=== PATIENT | female | born 1995 | race Caucasian/White ===

== ENCOUNTER 2017-01-01 09:26 | Emergency (ER) | payer BC ==
[2017-01-01] MEDS ORDERED: Famotidine 20 MG Tab PO ONE (09:56)
--- NOTE | 2017-01-01 10:02 | EDM.PDOC ---
ED HPI GENERAL MEDICAL PROBLEM - General Chief Complaint: Allergic Reaction Stated Complaint: REACTION TO MEDS Time Seen by Provider: 01/01/17 09:57 Source of Information: Reports: Patient - History of Present Illness INITIAL COMMENTS - FREE TEXT/NARRATIVE: HISTORY AND PHYSICAL: History of present illness: [Patient presents with history of bipolar disorder recently diagnosed by Debbi Boss, she was started on Lamictal just over a week ago she developed rash yesterday covering flanks arms by doc and anterior thigh as well as inner thigh , diffuse maculopapular rash which coalesces, there are no below no mucosal lesions or involvement, she denies current fever nausea vomiting chills sweats no chest pain shortness of breath headache dizziness or palpitation no sore throat no bowel or urine symptoms specifically no diarrhea Skin maculopapular rash as above no bulla, no vesicles, no target lesions, no mucosal involvement Review of systems: As per history of present illness and below otherwise all systems reviewed and negative. Past medical history: As per history of present illness and as reviewed below otherwise noncontributory. Surgical history: As per history of present illness and as reviewed below otherwise noncontributory. Social history: No reported history of drug or alcohol abuse. Family history: As per history of present illness and as reviewed below otherwise noncontributory. Physical exam: HEENT: Atraumatic, normocephalic, pupils reactive, negative for conjunctival pallor or scleral icterus, mucous membranes moist, throat clear, neck supple, nontender, trachea midline. No mucosal lesions, no epistaxis or conjunctivitis Lungs: Clear to auscultation, breath sounds equal bilaterally, chest nontender. Heart: S1S2, regular, negative for clicks, rubs, or JVD. Abdomen: Soft, nondistended, nontender. Negative for masses or hepatosplenomegaly. Negative for costovertebral tenderness. Pelvis: Stable nontender. Genitourinary: Deferred by patient. Rectal: Deferred. Extremities: Atraumatic, negative for cords or calf pain. Neurovascular unremarkable. Neuro: Awake, alert, oriented. Cranial nerves II through XII unremarkable. Cerebellum unremarkable. Motor and sensory unremarkable throughout. Exam nonfocal. Diagnostics: []Orthostatics Clinical exam Therapeutics: []Patient stopped Lamictal yesterday Benadryl 50 mg by mouth every 6 when necessary Zantac 150 milligrams by mouth twice a day when necessary Medrol Dosepak Impression: []Allergic reaction Definitive disposition and diagnosis as appropriate pending reevaluation and review of above. Generalized rash Pain Score (Numeric/FACES): 4 - Related Data Allergies Allergy/AdvReac Type Severity Reaction Status Date / Time doxycycline Allergy Hives Verified 01/01/17 09:34 Home Meds: Home Meds Levothyroxine Sodium [Levo-T] 112 mcg PO DAILY 01/01/17 [History] Progesterone,Micronized [Progesterone Micronized] 01/01/17 [History] metFORMIN [Glucophage XR] 1,000 mg PO DAILY 01/01/17 [History] Past Medical History Endocrine/Metabolic History: Reports: Hypothyroidism - Infectious Disease History Infectious Disease History: Reports: Other (See Below) Other Infectious Disease History: CP vaccine Social & Family History - Family History Family Medical History: Noncontributory - Tobacco Use Smoking Status *Q: Never Smoker Second Hand Smoke Exposure: No - Caffeine Use Caffeine Use: Reports: Coffee, Energy Drinks, Soda, Tea - Recreational Drug Use Recreational Drug Use: No ED ROS ALLERGIC REACTION - Review of Systems Review Of Systems: ROS reveals no pertinent complaints other than HPI. ED EXAM GENERAL NO PERIP PULSE - Physical Exam Exam: See Below Course - Vital Signs Last Recorded V/S: Last Vital Signs Temp 99.2 F 01/01/17 09:36 Pulse 96 01/01/17 09:36 Resp 16 01/01/17 09:36 BP 150/99 H 01/01/17 09:36 Pulse Ox 97 01/01/17 09:36 - Orders/Labs/Meds Orders: Active Orders 24 hr Category Date Time Status Orthostatic Vital Signs [RC] ASDIRECTED Care 01/01/17 10:02 Ordered Meds: Medications Discontinued Medications Generic Name Dose Route Start Last Admin Trade Name Freq PRN Reason Stop Dose Admin Famotidine 20 mg 01/01/17 09:56 Pepcid PO 01/01/17 09:57 ONETIME ONE Departure - Departure Time of Disposition: 10:05 Disposition: Home, Self-Care 01 Condition: Good Clinical Impression: Allergic reaction - Discharge Information Referrals: PCP,None [Primary Care Provider] - Additional Instructions: Medication as prescribed EpiPen adult is provided Return if symptoms persist or worsen despite treatment specifically if you develop any blister type lesions on her skin or sores in your mouth or vaginal area Discontinue Lamictal as you have done already Follow-up with [facility] as scheduled at the end of the month The following information is given to patients seen in the emergency department who are being discharged to home. This information is to outline your options for follow-up care. We provide all patients seen in our emergency department with a follow-up referral. The need for follow-up, as well as the timing and circumstances, are variable depending upon the specifics of your emergency department visit. If you don't have a primary care physician on staff, we will provide you with a referral. We always advise you to contact your personal physician following an emergency department visit to inform them of the circumstance of the visit and for follow-up with them and/or the need for any referrals to a consulting specialist. The emergency department will also refer you to a specialist when appropriate. This referral assures that you have the opportunity for follow-up care with a specialist. All of these measure are taken in an effort to provide you with optimal care, which includes your follow-up. Under all circumstances we always encourage you to contact your private physician who remains a resource for coordinating your care. When calling for follow-up care, please make the office aware that this follow-up is from your recent emergency room visit. If for any reason you are refused follow-up, please contact the [facility] emergency department at and asked to speak to the emergency department charge nurse. - My Orders Last 24 Hours: My Active Orders 01/01/17 10:02 Orthostatic Vital Signs [RC] ASDIRECTED - Assessment/Plan Last 24 Hours: My Active Orders 01/01/17 10:02 Orthostatic Vital Signs [RC] ASDIRECTED
== END 2017-01-01 10:35 | disposition home or self-care (01) ==
LOC: MW.ED 09:26
DX: T78.40XA Allergy, unspecified, initial encounter (principal); Z88.1 Allergy status to other antibiotic agents; Z79.84 Long term (current) use of oral hypoglycemic drugs
CPT/HCPCS: 99283

== ENCOUNTER 2018-05-15 03:31 | Inpatient (IN) | payer BC ==
[2018-05-15] MEDS ORDERED: Misoprostol 200 MCG Tab PO PRN (04:02)
[2018-05-15] MEDS ORDERED: Lidocaine 1% 50 ML MDV INJECT PRN (04:02)
[2018-05-15] MEDS ORDERED: Sodium Chloride 0.9% 10 ML SDV IV PRN (04:02)
[2018-05-15] MEDS ORDERED: Methylergonovine 0.2 MG/1 ML Amp IM PRN (04:02)
[2018-05-15] MEDS ORDERED: Water For Irrigation,Sterile 1,000 ML Container IRR PRN (04:02)
[2018-05-15] MEDS ORDERED: Ondansetron 4 MG/2 ML SDV IV PRN (04:02)
[2018-05-15] MEDS ORDERED: Sodium Chloride 0.9% 10 ML Syringe FLUSH PRN (04:02)
[2018-05-15] MEDS ORDERED: Misoprostol 25 MCG (1/4 of 100 MCG) Tab VAG PRN ×2 (04:02→08:15)
[2018-05-15] MEDS ORDERED: Terbutaline 1 MG/ML SDV SUBCUT PRN (04:02)
[2018-05-15] MEDS ORDERED: Carboprost Tromethamine 250 MCG/1 ML Amp IM PRN (04:02)
[2018-05-15] MEDS ORDERED: Tranexamic Acid 1,000 MG in Sodium Chloride 0.9% 100 ML IV PRN (04:02)
[2018-05-15] MEDS ORDERED: Nalbuphine 10 MG/1 ML Vial IVPUSH PRN (04:02)
[2018-05-15] MEDS ORDERED: Misoprostol 25 MCG (1/4 of 100 MCG) Tab PO ONE (04:10)
[2018-05-15] MEDS ORDERED: Oxytocin/0.9 % Sodium Chloride 30 UNIT/500 ML BAG IV SCH ×2 (04:15)
--- NOTE | 2018-05-15 07:29 | PCM.LDHP ---
L&D History of Present Illness - General Date of Service: 05/15/18 Admit Problem/Dx: Patient Status Order with Admit Dx/Problem 05/15/18 04:02 Patient Status [ADT] Routine Admission Diagnosis/Problem Admission Diagnosis/Problem -related examination 05/15/18 07:25 22yo EDC 05/09/2018 40 6/7wks IOL for post dates, A+, RI, GBS pos. Source of Information: Patient History Limitations: Reports: No Limitations - History of Present Illness Improves with: Reports: None Worsens with: Reports: None Associated Symptoms: Reports: N - Related Data Allergies/Adverse Reactions: Allergies Allergy/AdvReac Type Severity Reaction Status Date / Time doxycycline Allergy Hives Verified 04/11/18 21:28 lamotrigine [From Lamictal] Allergy Rash Verified 04/11/18 21:28 oxcarbazepine Allergy Rash Verified 04/11/18 21:28 Home Medications: Home Meds Levothyroxine Sodium [Levo-T] 112 mcg PO DAILY 01/01/17 [History] Ondansetron [Zofran ODT] 4 mg PO Q6H PRN 01/20/18 [History] PNV95/Ferrous Fumarate/FA [Prenavite Tablet] 1 each PO DAILY 01/20/18 [History] Past Medical History Genitourinary History: Reports: UTI, Recurrent 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: Reports: Polycystic Ovaries, Psychiatric History: Reports: Anxiety, Bipolar, Depression Endocrine/Metabolic History: Reports: Hypothyroidism - Infectious Disease History Infectious Disease History: Reports: Other (See Below) Other Infectious Disease History: CP vaccine - Past Surgical History HEENT Surgical History: Reports: Tonsillectomy Female Surgical History: Reports: None Social & Family History - Family History Family Medical History: Noncontributory - Tobacco Use Smoking Status *Q: Never Smoker Second Hand Smoke Exposure: No - Caffeine Use Caffeine Use: Reports: Coffee, Energy Drinks, Soda, Tea - Recreational Drug Use Recreational Drug Use: No H&P Review of Systems - Review of Systems: Review Of Systems: See Below General: Reports: No Symptoms HEENT: Reports: No Symptoms Pulmonary: Reports: No Symptoms Cardiovascular: Reports: No Symptoms Gastrointestinal: Reports: No Symptoms Genitourinary: Reports: No Symptoms Musculoskeletal: Reports: No Symptoms Skin: Reports: No Symptoms Psychiatric: Reports: No Symptoms Neurological: Reports: No Symptoms Hematologic/Lymphatic: Reports: No Symptoms Immunologic: Reports: No Symptoms L&D Exam - Exam Exam: See Below - Vital Signs Weight: 122.47 kg - OB Specific Contraction Intensity: Mild Movement: Active Heart Tones: Present Heart Tones per Min: 130 Heart Rate (FHR) Variability: Moderate (6-25 bmp) Presentation: Vertex - Ku Score Ku Score Cervix Position: Posterior Ku Score Consistency: Medium Ku Score Effacement: 31-50% Ku Score Dilation: 1-2 cm Ku Score Infant's Station: -2 Ku Score Total: 4 - Exam General: Alert, Oriented, Cooperative HEENT: Hearing Intact Lungs: Clear to Auscultation, Normal Respiratory Effort Cardiovascular: Regular Rate, Regular Rhythm, Normal S1, Normal S2 GI/Abdominal Exam: Soft, Non-Tender Rectal Exam: Deferred Genitourinary: Deferred Back Exam: Normal Inspection, Full Range of Motion Extremities: Normal Inspection, Normal Range of Motion, Non-Tender, No Pedal Edema, Normal Capillary Refill Skin: Warm, Dry, Intact Neurological: Cranial Nerves Intact, Reflexes Equal Bilateral, Normal Gait, Normal Speech, Normal Tone Psychiatric: Alert, Normal Affect, Normal Mood - Patient Data Lab Results Last 24 hrs: Laboratory Results - last 24 hr 05/15/18 05/15/18 Range/Units 04:25 04:25 WBC 9.93 (4.0-11.0) K/uL RBC 4.25 L (4.30-5.90) M/uL Hgb 13.9 (12.0-16.0) g/dL Hct 38.5 (36.0-46.0) % MCV 90.6 (80.0-98.0) fL MCH 32.7 H (27.0-32.0) pg MCHC 36.1 (31.0-37.0) g/dL RDW Std Deviation 42.7 (28.0-62.0) fl RDW Coeff of Tammy 13 (11.0-15.0) % Plt Count 168 (150-400) K/uL MPV 11.80 (7.40-12.00) fL Nucleated RBC % 0.0 /100WBC Nucleated RBCs # 0 K/uL Blood Type A POSITIVE Antibody Screen NEGATIVE Result Diagrams: 05/15/18 04:25 - Problem List (1) Supervision of normal IUP (intrauterine ) in primigravida SNOMED Code(s): 42292600, 190075748, 416039038, 232032089 ICD Code: Z34.00 - ENCNTR FOR SUPRVSN OF NORMAL FIRST , UNSP TRIMESTER Status: Acute Priority: High Current Visit: Yes Qualifiers: Trimester: third trimester Qualified Code(s): Z34.03 - Encounter for supervision of normal first , third trimester Problem List Initiated/Reviewed/Updated: Yes Orders Last 24hrs: Active Orders 24 hr Category Date Time Status Patient Status [ADT] Routine ADT 05/15/18 04:02 Active Bedrest Bathroom Privileges [RC] ASDIRECTED Care 05/15/18 04:02 Active Communication Order [RC] ASDIRECTED Care 05/15/18 04:02 Active Communication Order [RC] ASDIRECTED Care 05/15/18 04:02 Active Communication Order [RC] ASDIRECTED Care 05/15/18 04:02 Active Heart Tones [RC] CONTINUOUS Care 05/15/18 04:02 Active Non Stress Test [RC] PER UNIT ROUTINE Care 05/15/18 04:02 Active May Shower [RC] ASDIRECTED Care 05/15/18 04:02 Active Notify Provider [RC] PRN Care 05/15/18 04:02 Active Notify Provider [RC] PRN Care 05/15/18 04:02 Active Notify Provider [RC] PRN Care 05/15/18 04:02 Active Notify Provider [RC] STAT Care 05/15/18 04:02 Active Oxygen Therapy [RC] ASDIRECTED Care 05/15/18 04:02 Active Up ad [place] [RC] ASDIRECTED Care 05/15/18 04:02 Active Vaginal Exam [RC] PRN Care 05/15/18 04:02 Active Vaginal Exam [RC] PRN Care 05/15/18 04:02 Active Vital Signs [RC] PER UNIT ROUTINE Care 05/15/18 04:02 Active Vital Signs [RC] PER UNIT ROUTINE Care 05/15/18 04:02 Active Regular Diet [DIET] Diet 05/15/18 Breakfast Active Ampicillin 2 gm Med 05/15/18 04:02 Pending Sodium Chloride 0.9% [Normal Saline] 100 ml IV ONETIME Carboprost Tromethamine [Hemabate DS] Med 05/15/18 04:02 Active 250 mcg IM ASDIRECTED PRN Lactated Ringers [Ringers, Lactated] 1,000 ml Med 05/15/18 04:15 Active IV ASDIRECTED Lidocaine 1% [Xylocaine 1%] Med 05/15/18 04:02 Active 50 ml INJECT ONETIME PRN Methylergonovine [Methergine] Med 05/15/18 04:02 Active 0.2 mg IM ASDIRECTED PRN Nalbuphine [Nubain] Med 05/15/18 04:02 Active 10 mg IVPUSH Q1H PRN Ondansetron [Zofran] Med 05/15/18 04:02 Active 4 mg IV Q6H PRN Oxytocin/0.9 % Sodium Chloride [Oxytocin 30 Unit/500 ML Med 05/15/18 04:15 Active -NS] 30 unit in 500 ml IV TITRATE Oxytocin/0.9 % Sodium Chloride [Oxytocin 30 Unit/500 ML Med 05/15/18 04:15 Active -NS] 30 unit in 500 ml IV TITRATE Sodium Chloride 0.9% [Normal Saline] Med 05/15/18 04:02 Active 10 ml IV ASDIRECTED PRN Sodium Chloride 0.9% [Saline Flush] Med 05/15/18 04:02 Active 10 ml FLUSH ASDIRECTED PRN Terbutaline [Brethine] Med 05/15/18 04:02 Active 0.25 mg SUBCUT ASDIRECTED PRN Tranexamic Acid [Cyklokapron] 1,000 mg Med 05/15/18 04:02 Active Sodium Chloride 0.9% [Normal Saline] 100 ml IV ONETIME Water For Irrigation,Sterile [Sterile Water for Med 05/15/18 04:02 Active Irrigation] 1,000 ml IRR ASDIRECTED PRN miSOPROStol [Cytotec] Med 05/15/18 04:02 Active 200 mcg PO ONETIME PRN miSOPROStol [Cytotec] Med 05/15/18 08:15 Active 25 mcg PO Q4H miSOPROStol [Cytotec] Med 05/15/18 04:02 Active 25 mcg VAG ONETIME PRN miSOPROStol [Cytotec] Med 05/15/18 08:15 Active 25 mcg VAG Q4H PRN Scalp Electrode [WOMSER] Per Unit Routine Oth 05/15/18 04:02 Ordered Medication Administration Instruction [OM.PC] Q3H Oth 05/15/18 04:15 Ordered Peripheral IV Insertion Adult [OM.PC] Routine Oth 05/15/18 04:02 Ordered Resuscitation Status Routine Resus Stat 05/15/18 04:02 Ordered Medication Orders Carboprost Tromethamine (Hemabate Ds) 250 mcg IM ASDIRECTED PRN PRN Reason: Post Hemorrhage Ampicillin Sodium 2 gm/ Sodium (Chloride) 100 mls @ 200 mls/hr IV ONETIME PRN PRN Reason: GBS positive Lactated Ringer's (Ringers, Lactated) 1,000 mls @ 150 mls/hr IV ASDIRECTED KEVIN Oxytocin/Sodium Chloride (Oxytocin 30 Unit/500 Ml-Ns) 30 unit in 500 mls @ 999 mls/hr IV TITRATE KEVIN Oxytocin/Sodium Chloride (Oxytocin 30 Unit/500 Ml-Ns) 30 unit in 500 mls @ 2 mls/hr IV TITRATE KEVIN; Protocol Tranexamic Acid 1,000 mg/ (Sodium Chloride) 110 mls @ 660 mls/hr IV ONETIME PRN PRN Reason: Bleeding Lidocaine HCl (Xylocaine 1%) 50 ml INJECT ONETIME PRN PRN Reason: Laceration repair Methylergonovine Maleate (Methergine) 0.2 mg IM ASDIRECTED PRN PRN Reason: Post Hemorrhage Misoprostol (Cytotec) 200 mcg PO ONETIME PRN PRN Reason: Post Hemorrhage Misoprostol (Cytotec) 25 mcg VAG ONETIME PRN PRN Reason: Cervical Ripening Last Admin: 05/15/18 04:37 Dose: 25 mcg Misoprostol (Cytotec) 25 mcg VAG Q4H PRN PRN Reason: Cervical Ripening Misoprostol (Cytotec) 25 mcg PO Q4H KEVIN Nalbuphine HCl (Nubain) 10 mg IVPUSH Q1H PRN PRN Reason: Pain (severe 7-10) Ondansetron HCl (Zofran) 4 mg IV Q6H PRN PRN Reason: Nausea/Vomiting Sodium Chloride (Saline Flush) 10 ml FLUSH ASDIRECTED PRN PRN Reason: Keep Vein Open Last Admin: 05/15/18 04:25 Dose: 10 ml Sodium Chloride (Normal Saline) 10 ml IV ASDIRECTED PRN PRN Reason: IV Use Sterile Water (Sterile Water For Irrigation) 1,000 ml IRR ASDIRECTED PRN PRN Reason: delivery Terbutaline Sulfate (Brethine) 0.25 mg SUBCUT ASDIRECTED PRN PRN Reason: Tacysystole Assessment/Plan Comment:: IOL A: 22yo EDC 05/09/2018 40 6/7wks IOL for post dates, A+, RI, GBS pos. P: Admit, Cytotec to pitocin, desires non-medicated but will get Epidural if needed, Anticipate . Dr Sampson updated
[2018-05-15] MEDS: Misoprostol 25 MCG (1/4 of 100 MCG) Tab PO SCH (08:41)
[2018-05-15] MEDS: Lactated Ringers 1,000 ML IV SCH ×3 (09:40→17:57)
[2018-05-15] MEDS ORDERED: Ampicillin 2 GM in Sodium Chloride 0.9% 100 ML IV PRN (09:45)
[2018-05-15] MEDS: Ampicillin 1 GM in Sodium Chloride 0.9% 50 ML IV SCH ×3 (13:30→21:39)
[2018-05-15] MEDS ORDERED: fentaNYL 100 MCG/2 ML SDV ONE (17:11)
[2018-05-15] MEDS ORDERED: Ropivacaine 0.2% 2 MG/ML 20 ML SDV ONE (17:13)
--- NOTE | 2018-05-15 17:49 | PCM.PREANE ---
Preanesthetic Assessment - Anesthesia/Transfusion/Family Hx Anesthesia History: Prior Anesthesia Without Reaction Family History of Anesthesia Reaction: No - Review of Systems General: No Symptoms Pulmonary: No Symptoms Cardiovascular: No Symptoms Gastrointestinal: Abdominal Pain Neurological: No Symptoms Other: Reports: None - Physical Assessment NPO Status Date: 05/15/18 Height: 5 ft 6 in Weight: 122.47 kg ASA Class: 2 Mental Status: Alert & Oriented x3 Airway Class: Mallampati = 2 Dentition: Reports: Normal Dentition ROM/Head Extension: Full Lungs: Clear to Auscultation, Normal Respiratory Effort Cardiovascular: Regular Rate, Regular Rhythm - Lab Values: Laboratory Last Values WBC 9.93 K/uL (4.0-11.0) 05/15/18 04:25 RBC 4.25 M/uL (4.30-5.90) L 05/15/18 04:25 Hgb 13.9 g/dL (12.0-16.0) 05/15/18 04:25 Hct 38.5 % (36.0-46.0) 05/15/18 04:25 MCV 90.6 fL (80.0-98.0) 05/15/18 04:25 MCH 32.7 pg (27.0-32.0) H 05/15/18 04:25 MCHC 36.1 g/dL (31.0-37.0) 05/15/18 04:25 RDW Std Deviation 42.7 fl (28.0-62.0) 05/15/18 04:25 RDW Coeff of Tammy 13 % (11.0-15.0) 05/15/18 04:25 Plt Count 168 K/uL (150-400) 05/15/18 04:25 MPV 11.80 fL (7.40-12.00) 05/15/18 04:25 Nucleated RBC % 0.0 /100WBC 05/15/18 04:25 Nucleated RBCs # 0 K/uL 05/15/18 04:25 Blood Type A POSITIVE 05/15/18 04:25 Antibody Screen NEGATIVE 05/15/18 04:25 - Allergies Allergies/Adverse Reactions: Allergies Allergy/AdvReac Type Severity Reaction Status Date / Time doxycycline Allergy Hives Verified 04/11/18 21:28 lamotrigine [From Lamictal] Allergy Rash Verified 04/11/18 21:28 oxcarbazepine Allergy Rash Verified 04/11/18 21:28 - Blood Blood Available: No - Anesthesia Plan Pre-Op Medication Ordered: None - Acknowledgements Anesthesia Type Planned: Epidural Pt an Appropriate Candidate for the Planned Anesthesia: Yes Alternatives and Risks of Anesthesia Discussed w Pt/Guardian: Yes Pt/Guardian Understands and Agrees with Anesthesia Plan: Yes PreAnesthesia Questionnaire Genitourinary History: Reports: UTI, Recurrent 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: Reports: Polycystic Ovaries, Psychiatric History: Reports: Anxiety, Bipolar, Depression Endocrine/Metabolic History: Reports: Hypothyroidism - Infectious Disease History Infectious Disease History: Reports: Other (See Below) Other Infectious Disease History: CP vaccine - Past Surgical History HEENT Surgical History: Reports: Tonsillectomy Female Surgical History: Reports: None - SUBSTANCE USE Smoking Status *Q: Never Smoker Tobacco Use Within Last Twelve Months: No Second Hand Smoke Exposure: No Recreational Drug Use History: No - HOME MEDS Home Medications: Home Meds Levothyroxine Sodium [Levo-T] 112 mcg PO DAILY 01/01/17 [History] Ondansetron [Zofran ODT] 4 mg PO Q6H PRN 01/20/18 [History] PNV95/Ferrous Fumarate/FA [Prenavite Tablet] 1 each PO DAILY 01/20/18 [History] - CURRENT (IN HOUSE) MEDS Current Meds: Current Medications Carboprost Tromethamine (Hemabate Ds) 250 mcg IM ASDIRECTED PRN PRN Reason: Post Hemorrhage Ampicillin Sodium 2 gm/ Sodium (Chloride) 100 mls @ 200 mls/hr IV ONETIME PRN PRN Reason: GBS positive Last Admin: 05/15/18 09:39 Dose: 200 mls/hr Lactated Ringer's (Ringers, Lactated) 1,000 mls @ 150 mls/hr IV ASDIRECTED KEVIN Last Admin: 05/15/18 17:34 Dose: 150 mls/hr Oxytocin/Sodium Chloride (Oxytocin 30 Unit/500 Ml-Ns) 30 unit in 500 mls @ 999 mls/hr IV TITRATE KEVIN Oxytocin/Sodium Chloride (Oxytocin 30 Unit/500 Ml-Ns) 30 unit in 500 mls @ 2 mls/hr IV TITRATE KEVIN; Protocol Last Titration: 05/15/18 15:02 Dose: 6 munits/min, 6 mls/hr Tranexamic Acid 1,000 mg/ (Sodium Chloride) 110 mls @ 660 mls/hr IV ONETIME PRN PRN Reason: Bleeding Ampicillin Sodium 1 gm/ Sodium (Chloride) 50 mls @ 100 mls/hr IV Q4H [facility] Last Admin: 05/15/18 17:29 Dose: 100 mls/hr Lidocaine HCl (Xylocaine 1%) 50 ml INJECT ONETIME PRN PRN Reason: Laceration repair Methylergonovine Maleate (Methergine) 0.2 mg IM ASDIRECTED PRN PRN Reason: Post Hemorrhage Misoprostol (Cytotec) 200 mcg PO ONETIME PRN PRN Reason: Post Hemorrhage Misoprostol (Cytotec) 25 mcg VAG ONETIME PRN PRN Reason: Cervical Ripening Last Admin: 05/15/18 04:37 Dose: 25 mcg Misoprostol (Cytotec) 25 mcg VAG Q4H PRN PRN Reason: Cervical Ripening Last Admin: 05/15/18 08:41 Dose: 25 mcg Misoprostol (Cytotec) 25 mcg PO Q4H [facility] Last Admin: 05/15/18 08:41 Dose: 25 mcg Nalbuphine HCl (Nubain) 10 mg IVPUSH Q1H PRN PRN Reason: Pain (severe 7-10) Last Admin: 05/15/18 17:46 Dose: 10 mg Ondansetron HCl (Zofran) 4 mg IV Q6H PRN PRN Reason: Nausea/Vomiting Sodium Chloride (Saline Flush) 10 ml FLUSH ASDIRECTED PRN PRN Reason: Keep Vein Open Last Admin: 05/15/18 04:25 Dose: 10 ml Sodium Chloride (Normal Saline) 10 ml IV ASDIRECTED PRN PRN Reason: IV Use Sterile Water (Sterile Water For Irrigation) 1,000 ml IRR ASDIRECTED PRN PRN Reason: delivery Terbutaline Sulfate (Brethine) 0.25 mg SUBCUT ASDIRECTED PRN PRN Reason: Tacysystole Discontinued Medications Fentanyl (Sublimaze) Confirm Administered Dose 100 mcg .ROUTE .STK-MED ONE Stop: 05/15/18 17:12 Fentanyl/Bupivacaine HCl ([id number]-[id number]-Vq 2 Mcg/Ml-0.125%) Confirm Administered Dose 100 mls @ as directed .ROUTE .STK-MED ONE Stop: 05/15/18 17:13 Misoprostol (Cytotec) 25 mcg PO ONETIME ONE Stop: 05/15/18 04:11 Last Admin: 05/15/18 04:37 Dose: 25 mcg Ropivacaine (Naropin 0.2%) Confirm Administered Dose 20 ml .ROUTE .STK-MED ONE Stop: 05/15/18 17:14
[2018-05-16] MEDS ORDERED: Benzocaine/Menthol 20%-0.5% Spray 78 GM Cannister TOP PRN (01:09)
[2018-05-16] MEDS ORDERED: Witch Hazel Medicated Pads 40/Jar TOP PRN (01:09)
[2018-05-16] MEDS ORDERED: Acetaminophen 500 MG Tab PO PRN (01:09)
[2018-05-16] MEDS ORDERED: Bisacodyl 10 MG Supp RECTAL PRN (01:09)
[2018-05-16] MEDS ORDERED: Lanolin 100% Cream 7 GM Tube TOP PRN (01:09)
[2018-05-16] MEDS ORDERED: oxyCODONE 5 MG Tab PO PRN (01:09)
[2018-05-16] MEDS ORDERED: Ibuprofen 400 MG Tab PO PRN (01:09)
--- NOTE | 2018-05-16 01:48 | OR ---
SURGEON: Javy Sampson MD DATE OF PROCEDURE: DELIVERY NOTE: Ms. García is a 22-year-old primigravida. She is followed in our clinic primarily by me. Her care was uncomplicated. The patient is 40+ week. She is having positive GBS status. She is admitted for elective induction. She is induced with Cytotec and Pitocin. She responded very well for it. She was started on antibiotic, ampicillin because of her GBS status and after 2 doses when she was 4 cm, she had an artificial rupture of the membrane. It was noted that the amniotic fluid is meconium stained and at that time, she was 4, 90 vertex, and -3. The patient there was continued on Pitocin and she progressed adequately. She had epidural anesthesia for labor analgesia. She became complete, complete and then after about an hour and a half of pushing, she was able to accomplish normal spontaneous vaginal delivery of a female fetus, cried immediately. score reported to be 8 and 9. The weight is not available. The placenta delivered spontaneous, complete, and intact without any problem. There was small first-degree perineal laceration. It was repaired with 3-0 Vicryl in layer without any problem. Estimated blood loss is 250 to 300 mL. heart rate was category 1 through the entire process of labor. There was no complication in the Labor and Delivery. LIAM / JAI /[id number]
[2018-05-16] MEDS: Acetaminophen 500 MG Tab PO PRN ×4 (04:01→22:22)
[2018-05-16] MEDS: Ibuprofen 800 MG Tab PO PRN ×3 (04:01→19:13)
--- NOTE | 2018-05-16 06:07 | PCM48HPAN ---
Post Anesthesia Note - EVALUATION WITHIN 48HRS OF ANESTHETIC Vital Signs in Normal Range: Yes Patient Participated in Evaluation: Yes Respiratory Function Stable: Yes Airway Patent: Yes Cardiovascular Function Stable: Yes Hydration Status Stable: Yes Pain Control Satisfactory: Yes Nausea and Vomiting Control Satisfactory: Yes Mental Status Recovered: Yes Resp Rate: 18 - COMMENTS/OBSERVATIONS Free Text/Narrative:: Pt with bruising around epidural site.
[2018-05-16] MEDS: Misoprostol 25 MCG (1/4 of 100 MCG) Tab PO SCH ×2 (17:42→17:43)
[2018-05-16] MEDS: Ampicillin 1 GM in Sodium Chloride 0.9% 50 ML IV SCH ×2 (17:43→17:44)
[2018-05-16] MEDS: Docusate Sodium 100 MG Cap PO PRN (22:21)
[2018-05-17] MEDS: Ibuprofen 800 MG Tab PO PRN (06:06)
[2018-05-17] MEDS: Docusate Sodium 100 MG Cap PO PRN (06:06)
[2018-05-17] MEDS: Acetaminophen 500 MG Tab PO PRN (08:23)
--- NOTE | 2018-05-17 09:16 | PCM.DCSUM1 ---
Discharge Summary - Hospital Course Diagnosis: Stroke: No - Discharge Data Discharge Date: 05/17/18 Discharge Disposition: Home, Self-Care 01 Condition: Good - Patient Instructions Diet: Usual Diet as Tolerated Activity: As Tolerated Driving: Do Not Drive Showering/Bathing: June Shower Notify Provider of: Fever, Increased Pain, Nausea and/or Vomiting - Discharge Plan Home Medications: Home Meds Levothyroxine Sodium [Levo-T] 112 mcg PO DAILY 01/01/17 [History] Ondansetron [Zofran ODT] 4 mg PO Q6H PRN 01/20/18 [History] PNV95/Ferrous Fumarate/FA [Prenavite Tablet] 1 each PO DAILY 01/20/18 [History] Patient Handouts: Home Care Instructions for Mom, Vaginal Delivery, Care After Referrals: [facility] [Outside] Javy Sampson MD [Physician] - 06/26/18 3:00 pm - Discharge Summary/Plan Comment DC Time >30 min.: Yes - General Info Date of Service: 05/17/18 Functional Status: Reports: Pain Controlled - Review of Systems General: Reports: No Symptoms HEENT: Reports: No Symptoms Pulmonary: Reports: No Symptoms Cardiovascular: Reports: No Symptoms Gastrointestinal: Reports: No Symptoms Genitourinary: Reports: No Symptoms Musculoskeletal: Reports: No Symptoms Skin: Reports: No Symptoms Neurological: Reports: No Symptoms Psychiatric: Reports: No Symptoms - Patient Data Vitals - Most Recent: Last Vital Signs Temp 36.4 C 05/17/18 08:30 Pulse 59 L 05/17/18 08:30 Resp 17 05/17/18 08:30 BP 122/60 05/17/18 08:30 Pulse Ox 97 05/17/18 08:30 Weight - Most Recent: 122.47 kg Lab Results - Last 24 hrs: Laboratory Results - last 24 hr 05/17/18 Range/Units 05:22 Hgb 11.2 L (12.0-16.0) g/dL Hct 32.3 L (36.0-46.0) % Med Orders - Current: Current Medications Acetaminophen (Tylenol Extra Strength) 500 mg PO Q4H PRN PRN Reason: Pain Acetaminophen (Tylenol Extra Strength) 1,000 mg PO Q4H PRN PRN Reason: Pain Last Admin: 04/03/19 08:23 Dose: 1,000 mg Benzocaine/Menthol (Dermoplast Pain Relief 20%-0.5% [place]) 78 gm TOP ASDIRECTED PRN PRN Reason: Perineal Comfort Measure Last Admin: 05/16/18 07:53 Dose: 1 canister Bisacodyl (Dulcolax) 10 mg RECTAL ONETIME PRN PRN Reason: Constipation Carboprost Tromethamine (Hemabate Ds) 250 mcg IM ASDIRECTED PRN PRN Reason: Post Hemorrhage Docusate Sodium (Colace) 100 mg PO BID PRN PRN Reason: Constipation Last Admin: 05/17/18 06:06 Dose: 100 mg Emollient Ointment (Lansinoh Hpa) 0 gm TOP ASDIRECTED PRN PRN Reason: Sore Nipples Last Admin: 05/16/18 07:52 Dose: 1 tube Ampicillin Sodium 2 gm/ Sodium (Chloride) 100 mls @ 200 mls/hr IV ONETIME PRN PRN Reason: GBS positive Last Admin: 05/15/18 09:39 Dose: 200 mls/hr Lactated Ringer's (Ringers, Lactated) 1,000 mls @ 150 mls/hr IV ASDIRECTED KEVIN Last Admin: 05/15/18 17:57 Dose: 150 mls/hr Oxytocin/Sodium Chloride (Oxytocin 30 Unit/500 Ml-Ns) 30 unit in 500 mls @ 999 mls/hr IV TITRATE KEVIN Oxytocin/Sodium Chloride (Oxytocin 30 Unit/500 Ml-Ns) 30 unit in 500 mls @ 2 mls/hr IV TITRATE KEVIN; Protocol Last Titration: 05/16/18 01:00 Dose: 500 munits/min, 500 mls/hr Tranexamic Acid 1,000 mg/ (Sodium Chloride) 110 mls @ 660 mls/hr IV ONETIME PRN PRN Reason: Bleeding Ibuprofen (Motrin) 400 mg PO Q4H PRN PRN Reason: Pain Ibuprofen (Motrin) 800 mg PO Q6H PRN PRN Reason: Pain Last Admin: 05/17/18 06:06 Dose: 800 mg Lidocaine HCl (Xylocaine 1%) 50 ml INJECT ONETIME PRN PRN Reason: Laceration repair Methylergonovine Maleate (Methergine) 0.2 mg IM ASDIRECTED PRN PRN Reason: Post Hemorrhage Misoprostol (Cytotec) 200 mcg PO ONETIME PRN PRN Reason: Post Hemorrhage Misoprostol (Cytotec) 25 mcg VAG ONETIME PRN PRN Reason: Cervical Ripening Last Admin: 05/15/18 04:37 Dose: 25 mcg Misoprostol (Cytotec) 25 mcg VAG Q4H PRN PRN Reason: Cervical Ripening Last Admin: 05/15/18 08:41 Dose: 25 mcg Nalbuphine HCl (Nubain) 10 mg IVPUSH Q1H PRN PRN Reason: Pain (severe 7-10) Last Admin: 05/15/18 17:10 Dose: 10 mg Ondansetron HCl (Zofran) 4 mg IV Q6H PRN PRN Reason: Nausea/Vomiting Oxycodone HCl (Oxycodone) 5 mg PO Q2H PRN PRN Reason: Pain Sodium Chloride (Saline Flush) 10 ml FLUSH ASDIRECTED PRN PRN Reason: Keep Vein Open Last Admin: 05/15/18 04:25 Dose: 10 ml Sodium Chloride (Normal Saline) 10 ml IV ASDIRECTED PRN PRN Reason: IV Use Sterile Water (Sterile Water For Irrigation) 1,000 ml IRR ASDIRECTED PRN PRN Reason: delivery Terbutaline Sulfate (Brethine) 0.25 mg SUBCUT ASDIRECTED PRN PRN Reason: Tacysystole Witch Marcie (Tucks) 1 pad TOP ASDIRECTED PRN PRN Reason: comfort care Last Admin: 05/16/18 07:53 Dose: 1 tub Discontinued Medications Fentanyl (Sublimaze) Confirm Administered Dose 100 mcg .ROUTE .STK-MED ONE Stop: 05/15/18 17:12 Last Admin: 05/16/18 17:43 Dose: Not Given Ampicillin Sodium 1 gm/ Sodium (Chloride) 50 mls @ 100 mls/hr IV Q4H KEVIN Last Admin: 05/16/18 17:44 Dose: Not Given Fentanyl/Bupivacaine HCl (Wjkbhnkh-Xwyka-Ou 2 Mcg/Ml-0.125%) Confirm Administered Dose 100 mls @ as directed .ROUTE .STK-MED ONE Stop: 05/15/18 17:13 Last Admin: 05/16/18 17:43 Dose: Not Given Misoprostol (Cytotec) 25 mcg PO ONETIME ONE Stop: 05/15/18 04:11 Last Admin: 05/15/18 04:37 Dose: 25 mcg Misoprostol (Cytotec) 25 mcg PO Q4H KEVIN Last Admin: 05/16/18 17:43 Dose: Not Given Ropivacaine (Naropin 0.2%) Confirm Administered Dose 20 ml .ROUTE .STK-MED ONE Stop: 05/15/18 17:14 Last Admin: 05/16/18 17:43 Dose: Not Given - Exam General: Reports: Alert, Oriented HEENT: Reports: Pupils Equal, Pupils Reactive, EOMI, Mucous Membr. Moist/[place] Neck: Reports: Supple Lungs: Reports: Clear to Auscultation, Normal Respiratory Effort Cardiovascular: Reports: Regular Rate, Regular Rhythm GI/Abdominal Exam: Normal Bowel Sounds, Soft, Non-Tender, No Organomegaly, No Distention, No Abnormal Bruit, No Mass, Pelvis Stable (Female) Exam: Normal External Exam, Normal Speculum Exam, Normal Bimanual Exam Rectal (Female) Exam: Normal Exam, Normal Rectal Tone Back Exam: Reports: Normal Inspection, Full Range of Motion Extremities: Normal Inspection, Normal Range of Motion, Non-Tender, No Pedal Edema, Normal Capillary Refill Skin: Reports: Warm, Dry, Intact Wound/Incisions: Reports: Healing Well Neurological: Reports: No New Focal Deficit Psy/Mental Status: Reports: Alert, Normal Affect, Normal Mood
== END 2018-05-17 13:00 | disposition home or self-care (01) | DRG 560 ==
LOC: MW.OBCHECK 03:31 → MW.OB 03:32 → MW.OBCHECK 04:02 → MW.OB 07:27 → OBSVTOIN 05-16 00:57 → MW.OB 05-16 04:15
PROVIDERS: ADMIT Obstetrics & Gynecology; ATTEND Obstetrics & Gynecology
PROC: 10907ZC Drainage of Amniotic Fluid, Therapeutic from Products of Conception, Via Natural or Artificial Opening (ICD-10-PCS; principal; 2018-05-16)
PROC: 0HQ9XZZ Repair Perineum Skin, External Approach (ICD-10-PCS; principal; 2018-05-16)
PROC: 3E033VJ Introduction of Other Hormone into Peripheral Vein, Percutaneous Approach (ICD-10-PCS; principal; 2018-05-16)
PROC: 10E0XZZ Delivery of Products of Conception, External Approach (ICD-10-PCS; principal; 2018-05-16)
PROC: 3E0P7VZ Introduction of Hormone into Female Reproductive, Via Natural or Artificial Opening (ICD-10-PCS; principal; 2018-05-16)
PROC: 3E0R3BZ Introduction of Anesthetic Agent into Spinal Canal, Percutaneous Approach (ICD-10-PCS; 2018-05-16)
PROC: 00HU33Z Insertion of Infusion Device into Spinal Canal, Percutaneous Approach (ICD-10-PCS; 2018-05-16)
DX: O48.0 Post-term pregnancy (principal); Z3A.40 40 weeks gestation of pregnancy; O99.824 Streptococcus B carrier state complicating childbirth; Z37.0 Single live birth; O77.0 Labor and delivery complicated by meconium in amniotic fluid; O70.0 First degree perineal laceration during delivery; O99.214 Obesity complicating childbirth; E66.9 Obesity, unspecified; O99.344 Other mental disorders complicating childbirth; F41.9 Anxiety disorder, unspecified; O99.284 Endocrine, nutritional and metabolic diseases complicating childbirth; F31.9 Bipolar disorder, unspecified; E03.9 Hypothyroidism, unspecified; E28.2 Polycystic ovarian syndrome; F60.3 Borderline personality disorder; Z88.1 Allergy status to other antibiotic agents; Z88.8 Allergy status to other drugs, medicaments and biological substances; Z79.899 Other long term (current) drug therapy; Z91.5 Personal history of self-harm; Z79.890 Hormone replacement therapy; Z87.440 Personal history of urinary (tract) infections
CPT/HCPCS: 36415; 51702; 59025; 59409; 85014; 85018; 85027; 86850; 86900; 86901; A9270-GY; J0290; J2300; J2590; J2795; J3010; J7030; J7050; J7120